=== PATIENT | female | born 1960 | race Caucasian/White ===

== ENCOUNTER 2016-06-17 13:26 | Emergency (ER) | payer BC ==
--- NOTE | 2016-06-17 14:23 | UC ---
Knee Pain HPI - HPI Summary HPI Summary: complaint of right knee pain that started this morning pain started at the top of her knee cap and then it became very swollen went home elevated and iced it with some relief constant throbbing pain worse with bending of the knee pain lessens with ice and rest denies trauma hx of right knee problems arthroscopic surgery 2007- torn ligament used to get injections for pain d/t arthritis hasn't taken any medication for pain sees Dr [facility] - History of Current Complaint Chief Complaint: UCLowerExtremity Stated Complaint: RIGHT KNEE PAIN Time Seen by Provider: 06/17/16 14:12 Hx Obtained From: Patient Hx Last Menstrual Period: 2003 - Allergies/Home Medications Allergies/Adverse Reactions: Allergies Allergy/AdvReac Type Severity Reaction Status Date / Time No Known Allergies Allergy Verified 05/07/13 10:27 PMH/Surg Hx/FS Hx/Imm Hx Previously Healthy: No - chronic knee pain Cardiovascular History Of: Reports: Cardiac Disorders - 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 Right Knee Arthroscopy, 2007, [facility]. Novasure, 2004, [facility] - Social History Occupation: Employed Full-time Lives: With Family Alcohol Use: Occasionally Substance Use Type: None Smoking Status (MU): Light Every Day Tobacco Smoker Amount Used/How Often: 3 cigs a day Review of Systems Constitutional: Negative Skin: Negative Eyes: Negative ENT: Negative Respiratory: Negative Cardiovascular: Negative Gastrointestinal: Negative Genitourinary: Negative Motor: Negative Neurovascular: Negative Musculoskeletal: Other: - right knee pain Neurological: Negative Psychological: Negative All Other Systems Reviewed And Are Negative: Yes Physical Exam Triage Information Reviewed: Yes Appearance: No Pain Distress, Well-Nourished Vital Signs: Initial Vital Signs Temp 98.1 F 06/17/16 14:04 Pulse 84 06/17/16 14:04 Resp 16 06/17/16 14:04 BP 134/70 06/17/16 14:04 Pulse Ox 99 06/17/16 14:04 Vital Signs Reviewed: Yes Eyes: Positive: Conjunctiva Clear ENT: Positive: Pharynx normal, TMs normal. Negative: Nasal congestion Neck: Positive: No Lymphadenopathy Respiratory: Positive: Lungs clear, Normal breath sounds, No respiratory distress Cardiovascular: Positive: RRR, No Murmur Abdomen Description: Positive: Nontender, Soft Bowel Sounds: Positive: Present Musculoskeletal: Positive: Other: - RLE- tenderness superior to patella effusion throughout knee- not warmer than surrounding skin no instablity Neurological Exam: Normal Psychological Exam: Normal Skin Exam: Normal Knee Pain Course/Dx - Course Course Of Treatment: exam completed. x-ray shows patelofemoral artrhitis with a loose body. will start NSAIDS to reduce inflammation , wear immobilizer and followup kwaku with ortho - Differential Dx/Diagnosis Differential Diagnosis/HQI/PQRI: Gout, Patellofemoral Syndrome, Sprain, Strain Provider Diagnoses: right knee pain Discharge - Discharge Plan Condition: Stable Disposition: HOME Patient Education Materials: Swollen Knee Joint (ED) Referrals: Ferdinand Betancourt MD [Primary Care Provider] - Additional Instructions: start ibuprofen 800 mg three times a day with food to reduce inflammation and pain control wear your knee immobilzer when walking rest , elevated and ice your knee call orthopedics for followup as soon as possible
--- NOTE | 2016-06-17 14:45 | RAD ---
INDICATION: Right knee pain COMPARISON: February 10, 2013 TECHNIQUE: AP and lateral views were obtained. FINDINGS: There are no acute bony findings. There is minor medial joint space narrowing. There is advanced patellofemoral osteoarthritis with probable loose body. The joint effusion has resolved. IMPRESSION: PATELLOFEMORAL OSTEOARTHRITIS WITH PROBABLE LOOSE BODY
[2016-06-17 15:08] VITALS: BP 114/88
== END 2016-06-17 15:09 | disposition home or self-care (01) ==
LOC: UCCORT 13:26
DX: M25.561 Pain in right knee (principal); F17.210 Nicotine dependence, cigarettes, uncomplicated
CPT/HCPCS: 99212; G0463

== ENCOUNTER 2023-04-15 06:22 | Observation (INO) ==
[~2023-04-15 06:22] MED LIST: Buffered Lidocaine 1% SYRIN 1 ml INTRADERM ONE; Lactated Ringers 1000 ml BAG 1,000 ML IV SCH
[2023-04-15] MEDS ORDERED: Phenylephrine IV 10 MG/ML 1 ml VIAL ONE (07:02)
[2023-04-15] MEDS ORDERED: Lidocaine 2% PF 5 ML VIAL ONE (07:02)
[2023-04-15] MEDS ORDERED: Glycopyrrolate IV 0.2 MG/ML 1 ML VIAL ONE (07:02)
[2023-04-15] MEDS ORDERED: Ondansetron 4 mg VIAL 2 MG/ML 2 ml VIAL ONE (07:02)
[2023-04-15 07:07] LABS: Rapid COVID-19 Molecular Undetected (Undetected)
[2023-04-15] MEDS ORDERED: ROPIVACAINE 5 MG/ML 30 ML BTL (0.5%) ONE ×2 (07:23→08:01)
[2023-04-15] MEDS ORDERED: Tranexamic Acid 1 GM/100ML BAG 2,000 MG/200 ML BAG IV ONE (07:26)
[2023-04-15] MEDS ORDERED: ceFAZolin 2 GM PREMIX 2 GM/50 ML BAG ONE (07:26)
[2023-04-15] MEDS ORDERED: Midazolam 2 mg/2 ml VIAL 1 mg/ml 2 ml VIAL (2 mg) ONE (07:45)
[2023-04-15] MEDS ORDERED: Sevoflurane BOTTLE ONE (08:08)
[2023-04-15] MEDS ORDERED: fentaNYL 250 mcg/5 ml 50 MCG/ML 5 ml VIAL (250 MCG) ONE (08:08)
[2023-04-15] MEDS ORDERED: Propofol 10 MG/ML 20 ML BTL ONE (08:11)
[2023-04-15] MEDS ORDERED: Famotidine IV 10 MG/ML 2 ml VIAL (20 mg) ONE (08:42)
[2023-04-15] MEDS ORDERED: fentaNYL 100 mcg/2 ml 50 MCG/ML VIAL IV PRN (09:14)
[2023-04-15] MEDS ORDERED: Ondansetron 4 mg VIAL 2 MG/ML 2 ml VIAL IV PRN ×2 (09:14→12:02)
[2023-04-15] MEDS ORDERED: HYDROmorphone 1 MG/1 ML SYRINGE IV PRN (09:14)
[2023-04-15] MEDS ORDERED: Acetaminophen IV 1 GM/100ML 1,000 MG/100 ML BAG IV PRN (09:14)
[2023-04-15] MEDS ORDERED: Naloxone 0.4 mg VIAL 0.4 mg/ml 1 ml VIAL IV PRN (09:14)
[2023-04-15] MEDS ORDERED: Dexamethasone IV 4 MG/ML VIAL 1 ml VIAL ONE (09:24)
[2023-04-15] MEDS ORDERED: KETAMINE HCL 10 MG/ML 20 ml VIAL (200 MG) ONE (09:28)
[2023-04-15] MEDS ORDERED: Metoclopramide 5 MG/ML VIAL (10 mg) ONE ×2 (09:42→14:32)
[2023-04-15] MEDS ORDERED: HYDROmorphone 0.5 MG/0.5 ML SYRINGE ONE (09:44)
[2023-04-15] MEDS ORDERED: Acetaminophen IV 1 GM/100ML 1,000 MG/100 ML BAG IV ONE (09:51)
[2023-04-15] MEDS ORDERED: fentaNYL 100 mcg/2 ml 50 MCG/ML VIAL ONE (11:48)
[2023-04-15] MEDS ORDERED: Magnesium Hydroxide LIQ 30 ML UDC PO PRN (12:02)
[2023-04-15] MEDS ORDERED: Morphine 2 MG/ML SYRINGE IV PRN (12:02)
[2023-04-15] MEDS ORDERED: Lactulose 30 ml UDC PO PRN (12:02)
[2023-04-15] MEDS ORDERED: Ondansetron ODT 4 mg TAB 4 MG TAB PO PRN (12:02)
[2023-04-15] MEDS ORDERED: Bupivacaine-MPF SPINAL 7.5 MG/ML - 2ML AMP ONE (13:06)
[2023-04-15] MEDS: Lactated Ringers 1000 ml BAG 1,000 ML IV SCH ×2 (13:18→22:26)
[2023-04-15] MEDS: ceFAZolin 1 GM ADVAN 1 GM in NS 0.9% 50 ML 50 ML IVPB SCH (17:18)
[2023-04-15] MEDS: Magnesium Hydroxide LIQ 30 ML UDC PO SCH (21:49)
[2023-04-16] MEDS: ceFAZolin 1 GM ADVAN 1 GM in NS 0.9% 50 ML 50 ML IVPB SCH ×2 (01:40→09:21)
[2023-04-16 07:02] LABS: Platelet Count 219 10^3/uL (150-450)
[2023-04-16 07:29] LABS: Hematocrit 36.5 % (35-45); Hemoglobin 12.3 g/dL (11.5-14.3); Mean Platelet Volume 7.5 fL (7.5-11.2)
[2023-04-16 07:33] LABS: Calcium 8.5 mg/dL (8.6-10.3); Creatinine, Serum 0.66 mg/dL (0.51-0.95); Potassium 4.2 mmol/L (3.5-5.0); eGFR CKD-EPI 98.5 (>60)
[2023-04-16] MEDS ORDERED: Vitamin THERAPEUTIC TAB PO SCH (09:00)
[2023-04-16] MEDS: Lactated Ringers 1000 ml BAG 1,000 ML IV SCH (09:13)
[2023-04-16] MEDS: Magnesium Hydroxide LIQ 30 ML UDC PO SCH (09:17)
[2023-04-16 10:42] VITALS: BP 107/73
== END 2023-04-16 13:11 | disposition home or self-care (01) ==
LOC: OR 06:22 → SSU 06:22
PROVIDERS: ADMIT Orthopaedic Surgery Adult Reconstructive Orthopaedic Surgery; ATTEND Orthopaedic Surgery Adult Reconstructive Orthopaedic Surgery